=== PATIENT | male | born 1965 | race Caucasian/White ===

== ENCOUNTER 2023-05-19 16:49 | Emergency (ER) | payer OTHER, SELFPAY ==
[2023-05-19 16:50] VITALS: BP 151/96; PULSE 74; RESP 16; TEMP 37.1; O2SAT 96; BMI 38.5
--- NOTE | 2023-05-19 17:05 | EX.ED.DYSGE1 ---
HPI History of Present Illness Chief Complaint: Palpitations Detail of Chief Complaint: Irregular heartbeat, premature beats Informant: patient Onset/Context/Timing Onset: Today and Yesterday Context: Sudden Onset Timing: Intermittent Quality: Irregular heartbeat Location: Cardiovascular Current Severity: Mild Worsened by: Nothing Relieved by: Nothing Associated Symptoms Associated Symptoms: Nothing Narrative Narrative: Patient is a 57-year-old male on no medication with no past medical history who resides in [place]. He drove up last evening after work. He was doing minor tree trimming this morning. He presents because of palpitations/irregular heartbeat. He denies history of premature beats. He states he was in trigeminy at 1 point. He is a retired critical care and SICU nurse. He worked at [employer] and [employer] [employer]. He now is a IV nurse. He denies constitutional symptoms. He denies chest pain pressure tightness. He denies shortness of breath. He denies dyspnea on exertion. There is no history of PE or DVT. He has had recent swelling of his lower extremities. Prior similar symptoms: No Recent Illness/Hospitalization: No PFSH PFSH Medical History no medical history no medical history Allergy/AdvReac Type Severity Reaction Status Date / Time No Known Allergies Allergy Verified 05/19/23 16:50 Surgical History (Updated 05/19/23 @ 17:27 by Tania Hill) History of hip replacement Social History (Updated 05/19/23 @ 17:[address] Calin Wong MD) Smoking Status: Never smoker details: Denies alcohol use substance use type: does not use ROS ROS ED Constitutional Constitutional ED: Denies chills, fever(s), subjective, sweats or weight loss Eyes Eyes: Denies blurry vision, change in vision or diplopia Cardiovascular Cardiovascular: Reports palpitations; Denies chest pain, orthopnea, paroxysmal nocturnal dyspnea or racing heartbeat Respiratory/Chest Respiratory/Chest: Denies cough, dyspnea, dyspnea on exertion, orthopnea or paroxysmal nocturnal dyspnea Gastrointestinal Gastrointestinal: Denies nausea or vomiting Neurologic Neurologic: Denies paresthesias or weakness Hematologic/Lymphatic Hematologic/Lymphatic: Reports systems reviewed and no addt'l complaints, except as documented EXAM Physical Exam Const Vital Signs: 05/19/23 16:50 05/19/23 17:26 Temperature 98.7 F Temperature Source Temporal Pulse Rate 74 Respiratory Rate 16 Respiratory Effort Normal Non-Labored Respiratory Pattern Normal Blood Pressure 151/96 H Blood Pressure Mean 114 Pulse Ox 96 Oxygen Delivery Method Room Air Positive well nourished, well developed and obese General Appearance ED: well developed and NAD; Negative for cyanotic, diaphoretic or pallor Nutritional Appearance: obese HEENT Reports moist mucous membranes HEENT Narrative: Head is atraumatic normocephalic. Ears normal. Nares Eyes PERRL and EOMs intact bilaterally General Eye ED: Negative for scleral icterus Neck no lymphadenopathy and no JVD Chest Wall inspection of chest normal and palpation of chest normal Resp normal respiratory effort and clear to auscultation bilaterally Cardio regular rate, S1 normal heart sound, S2 normal heart sound and no murmurs Rhythm: abnormal rhythm other (Patient has premature ventricular beats. There was a run of trigeminy.) GI normal to inspection, nondistended, normoactive bowel sounds, non-tender, non-distended and no masses; Negative for hepatosplenomegaly Back/Spine no CVA tenderness Thoracic Spine / Upper Back: Negative for thoracic spinal tenderness Lumbar Spine / Lower Back: Negative for lumbar spinal tenderness Extremity normal to inspection General Extremety ED: Yes edema; Negative for tenderness General Extremity: edema Neuro oriented x3 and CN's II-XII intact bilaterally Sensorium / Orientation: alert Psych mental status grossly normal Skin no rashes or lesions noted, no wounds and skin turgor normal General Skin Exam: Negative for jaundice or pallor MDM MDM MDM Narrative Medical decision making narrative: Patient presents with irregular heartbeat. Monitor reveals premature ventricular beats and intermittent episodes of trigeminy. Patient has no other symptoms. EKG was obtained to evaluate for any acute ischemic changes or any type of abnormality. BMP was obtained to assess electrolytes and specifically potassium. Since patient is not complaining of chest pain, dyspnea on exertion, anginal equivalent symptoms or exertional symptoms troponin was not obtained. He was placed on the monitor. There are [place]. Lab Data Attestation: I reviewed the patient's lab results. Lab results narrative: Patient has mild hypokalemia. BUN to creatinine ratio is elevated and consistent with prerenal azotemia. Labs: Laboratory Results - last 24 hr 05/19/23 17:07 Sodium 139 Potassium 3.4 L Chloride 108 H Carbon Dioxide 27.0 Anion Gap 4 L BUN 25 H Creatinine 1.00 Estim Creat Clear Calc 96.24 Est GFR (MDRD) Af Amer 99 Est GFR (MDRD) Non-Af 82 BUN/Creatinine Ratio 25.1 H Glucose 102 Calcium 9.1 Rhythm Strip Rate: 82 Ectopy: PVC(s) (Documented under the physical portion of the chart, cardiovascular) EKG Initial EKG: Attestation: I personally reviewed and interpreted this EKG as follows: Interpretation: Sinus Rhythm (Sinus rhythm with frequent premature ventricular beats. Rate is 81. CO interval is 196 ms. QRS duration is prolonged at 112 ms. QT duration is 400 ms. [place] to the left. Patient is noted to have trigeminy on the twelve-lead.) Treatment and Re-Evaluation :: Patient was informed of his lab results. He was discharged home in stable condition. Discharge Plan Triage Chief Complaint: Palpitations ED Provider: Calin Wong Dx/Rx/DC Orders Clinical Impression: Acute prerenal azotemia, Frequent ventricular premature beats, Hypokalemia Instructions: PVCs Primary Care Provider: Care Physician,No Primary Referrals: [facility] Doctor,Out of [Non-Staff] - As Needed Disposition Disposition: Home, Self Care
[2023-05-19 17:33] LABS: Anion Gap 4 (5-15); BUN 25 mg/dL (7-18); BUN/Creat Ratio 25.1 RATIO (10-20); Calcium,Total 9.1 mg/dL (8.5-10.1); Chloride 108 mmol/L (98-107); EST Glomerular Filtration Rate 82 mL/min (>60); Est Glom Filt Rate - Afr Amer 99 mL/min (>60); Estimated Creatinine Clearance 96.24 ml/min; Glucose 102 mg/dL (74-106); Potassium 3.4 mmol/L (3.5-5.1); Sodium Level 139 mmol/L (136-145)
== END 2023-05-19 18:19 | disposition home or self-care (01) ==
PROVIDERS: Emergency Provider Emergency Medicine; Visit Provider Emergency Medicine
DX: I49.3 Ventricular premature depolarization (principal); R00.8 Other abnormalities of heart beat; E87.6 Hypokalemia; R79.89 Other specified abnormal findings of blood chemistry; M79.89 Other specified soft tissue disorders; E66.9 Obesity, unspecified
CPT/HCPCS: 80048; 93005; 99284; A4216

== ENCOUNTER 2025-08-16 05:29 | Day surgery (SDC) | payer OTHER, SELFPAY ==
[2025-08-16] VITALS (7 sets, daily range): BP systolic 110–121; BP diastolic 74–81; PULSE 61–69; RESP 14–18; TEMP 36.3–36.6; O2SAT 96–98; BMI 32.8
[2025-08-16] MEDS: Lactated Ringers 1,000 ML 15 ML IV (06:08)
== END 2025-08-16 07:59 | disposition home or self-care (01) ==
LOC: EN 05:30 → AC 05:30
PROVIDERS: PCP Internal Medicine; Referring Provider Internal Medicine; Visit Provider Internal Medicine Gastroenterology
PROC: 0DJD8ZZ Inspection of Lower Intestinal Tract, Via Natural or Artificial Opening Endoscopic (ICD-10-PCS; CPT 45378; principal; 2025-08-16 06:25)
DX: Z12.11 Encounter for screening for malignant neoplasm of colon (principal); K57.30 Diverticulosis of large intestine without perforation or abscess without bleeding; K63.5 Polyp of colon; Z96.642 Presence of left artificial hip joint; Z90.49 Acquired absence of other specified parts of digestive tract
CPT/HCPCS: 45385; 45380; 88305; J2405